=== PATIENT | female | born 1950 | race Two or more races ===

== ENCOUNTER 2020-11-26 17:40 | Inpatient (IN) | payer MEDICARE, BC ==
[~2020-11-26] VITALS: Ht 157.5 cm; Wt 56.7 kg
--- NOTE | 2020-11-26 17:45 | NUR ---
CODE STROKE ACTIVATED.
--- NOTE | 2020-11-26 17:46 | NUR ---
SINGH FROM SHIRT LINE OPERATOR OFFICE. TO ER BED 5. AAOX4. NOT IN RESP DISTRESS. BROUGHT IN FOR UNABLE TO SPEAK SUDDENLY. LKWT 1710. NO MOTOR DEFICIT NOTED. PT IS COMMUNICATING VIA TYPING AT HER CELLPHONE AND WRITING. WAS AT THE BEDSIDE FOR EVAL. ORDERS RECEIVED, NOTED AND CARRIED OUT.
--- NOTE | 2020-11-26 17:46 | NUR ---
IV LINE ESTABLISHED BLOOD DRAWN AND SENT TO LAB.
--- NOTE | 2020-11-26 17:49 | NUR ---
PT IS WHEELED TO CT SCAN VIA CODE STROKE PROTOCOL.
--- NOTE | 2020-11-26 17:50 | NUR ---
TELE NEUROLOGIST WILL BE DR. GUIDO RUIZ.
--- NOTE | 2020-11-26 17:59 | NUR ---
PT IS BACK FROM THE CT SCAN.
[2020-11-26] MEDS ORDERED: DICL100G34 TP (18:07)
[2020-11-26] MEDS ORDERED: DULO60CA45 PO (18:07)
[2020-11-26] MEDS ORDERED: NITR0.4T48 SL (18:07)
[2020-11-26] MEDS ORDERED: PIME30CR TP (18:07)
[2020-11-26] MEDS ORDERED: METO25TA3 PO (18:07)
[2020-11-26] MEDS ORDERED: MULT-447 PO (18:07)
[2020-11-26] MEDS ORDERED: ASCO-352 PO (18:07)
[2020-11-26] MEDS ORDERED: CALC500T13 PO (18:07)
[2020-11-26] MEDS ORDERED: HYDR28.316 TD (18:07)
[2020-11-26] MEDS ORDERED: ASPI-1420 PO (18:07)
[2020-11-26] MEDS ORDERED: OMEG1CAP PO (18:07)
[2020-11-26] MEDS ORDERED: ATOR10TA PO (18:07)
[2020-11-26] MEDS ORDERED: TURM1CAP2 PO (18:07)
[2020-11-26] MEDS ORDERED: MAGN400T26 PO (18:07)
[2020-11-26] MEDS ORDERED: GLUC15006 PO (18:07)
[2020-11-26] MEDS ORDERED: UBID100C13 PO (18:07)
[2020-11-26] MEDS ORDERED: LORA10TA7 PO (18:07)
[2020-11-26 18:08] LABS: CALCIUM, SERUM 8.6 mg/dL (8.5-10.1); CARBON DIOXIDE 28 mmol/L (21-32); CHLORIDE 105 mmol/L (98-107); CREATININE 0.9 mg/dL (0.6-1.3); GLUCOSE 85 mg/dL (74-106); POTASSIUM 4.3 mmol/L (3.5-5.1); SODIUM SERUM 143 mmol/L (136-145); UREA NITROGEN, BLOOD 24 mg/dL (7-18)
[2020-11-26 18:12] LABS: BASOPHILS # (AUTO) 0.1 K/uL (0.0-0.2); BASOPHILS % (AUTO) 1.4 % (0.0-2.0); EOSINOPHILS % (AUTO) 1.5 % (0.0-6.0); HEMATOCRIT 39 % (33-45); LYMPHOCYTES # (AUTO) 1.6 K/uL (0.8-4.8); LYMPHOCYTES % (AUTO) 32.6 % (20.0-44.0); MEAN CORPUSCULAR HGB CONC 33 g/dl (31.0-36.0); MEAN CORPUSCULAR VOLUME 92 fL (82-100); MONOCYTES # (AUTO) 0.5 K/uL (0.1-1.30); MONOCYTES % (AUTO) 9.4 % (2.0-12.0); NEUTROPHILS # (AUTO) 2.8 K/uL (1.8-8.9); NEUTROPHILS % (AUTO) 55.1 % (43.0-81.0); PLATELET COUNT (AUTO) 229 K/uL (150-450); RED BLOOD CELL COUNT(AUTO) 4.25 MIL/uL (4.0-5.2)
[2020-11-26] MEDS ORDERED: IV NS 0.9% 250 ML IV ONE (18:25)
[2020-11-26] MEDS ORDERED: IOHEXOL-350 100 ML VIAL IV ONE (18:25)
--- NOTE | 2020-11-26 18:50 | NUR ---
MOVE SHEET SUBMITTED.
[2020-11-26 18:54] LABS: CHOLESTEROL 147 mg/dL (<200); HDL CHOLESTEROL 59 mg/dL (40-60); LDL 67 mg/dL (0-99); TRIGLYCERIDES 132 mg/dL (30-150)
--- NOTE | 2020-11-26 19:15 | NUR ---
PT IS ABLE TO TALK BUT STILL NOTED WITH SLIGHT STUTTERING. MADE AWARE.
[2020-11-26] MEDS ORDERED: ASPIRIN 325 MG TABLET PO ONE (20:00)
--- NOTE | 2020-11-26 20:00 | NUR ---
ANOTHE SWALLOW SCREEN DONE TO PT D/T PAT IS ABLE TO TALK NOW. PT TOLERATED TRIALS WELL
[2020-11-26] MEDS ORDERED: ASPIRIN 325 MG TABLET ONE (20:54)
--- NOTE | 2020-11-26 21:05 | NUR ---
309-2 PER RN CLAIMS ATTORNEY
--- NOTE | 2020-11-26 21:15 | NUR ---
REPORT GIVEN TO ROGELIO HUI FOR JUN
[2020-11-26 21:20] VITALS: BP 133/75
--- NOTE | 2020-11-26 21:36 | NUR ---
pt transported to unit in [facility] with emt and rn at bedside w/ acls protocol. nad noted during transport
--- NOTE | 2020-11-26 21:40 | NUR ---
ARCHIVIST ECONOMIC HISTORY NOTES PT ARRIVED TO ROOM VIA GURNEY PT WAS ABLE TO WALK TO BED PT WITHOUT ASSISTANCE PT NOTED WITH STEADY GAIT. PT IS A 70 YEAR OLD FEMALE PT CAME TO HOSPITAL AFTER HAVING AN EPISODE OF APHASIA WHILE AT HER ORCHESTRA CONDUCTOR DOCTORS OFFICE. PT WAS GIVEN ASPIRIN AND FLUIDS IN THE ER. MULTIPLE TEST WERE DONE NECK CTA, HEAD CTA, HEAD CT CHEST X RAY ALL TEST NEGATIVE PT ADMITTED TO TELE. PT A/O X4 ABLE TO SPEAK NOTED WITH SOME STUTTERING AT TIMES. PT HAS IV ACCESS ON RAC # 8G AND LFA #18G PATENT AND FLUSHING WELL NO REDNESS OR SWELLING AT SITE CURRENTLY SALINE LOCKED. PT PUT ON TELE MONITOR. PT HELPED CHANGED TO HOSPITAL GOWN PT NOTED WITH CLEAN DRY WARM SKIN NO REDNESS OR DISCOLORATION NOTED. PT ORIENTED TO ROOM AND UNIT. ALL NURSING NEEDS MET AT THIS TIME PT REPORTS NO PAIN OR DISCOMFORT AT THIS TIME. NO RESPIRATORY DISTRESS NOTED. PT ON ROOM AIR TOLERATING WELL. SAFETY MEASURES FOLLOWED AT ALL TIMES BED IN LOW POSITION, HOB ELEVATED BILATERAL SIDE RAILS UP. WILL CONTINUE TO MONITOR. Addendum: 11/27/20 at 0041 by JESSE SHEETS RN PT AMBULATES WITH WALKER.
[2020-11-26 22:00] VITALS: BP 133/75
--- NOTE | 2020-11-26 22:00 | NUR ---
BEE BREEDER NOTES NO ADMITTING ORDERS YET INFORMED ICE CREAM FREEZER ASSISTANT EPIC DOCTOR. STATED OK FOR PT TO EAT NO FURTHER ORDERS. WILL CONTINUE TO MONITOR.
[2020-11-27] VITALS: BP 118/59
--- NOTE | 2020-11-27 00:08 | NUR ---
ENGINEERING LAB TECHNICIAN NOTES INSTALLATION & MAINTENANCE EXECUTIVE JOHANNY RUSH MADE AWARE THAT PT DOES NOT HAVE ADMITTING ORDERS, STATED SHE IS AWARE AWAITING FOR ORDERS.
[2020-11-27] MEDS ORDERED: CALCIUM CARBONATE 500 MG TAB.CHEW PO PRN (02:00)
[2020-11-27] MEDS: ATORVASTATIN 10 MG TABLET PO SCH ×2 (02:41→17:22)
--- NOTE | 2020-11-27 02:42 | NUR ---
MANAGER OF APPLICATIONS DEVELOPMENT OTES ADMITTING ORDERS PUT IN NIHSS SCORE 0 AT THIS TIME WILL CONTINUE TO DO Q4HR CHECKS.
--- NOTE | 2020-11-27 02:48 | NUR ---
SYSTEM DESIGNER NOTES MANAGER STYLE EPIC DOCTOR MADE AWARE PT STILL HAS NO DIET ORDER OR ADMITTING DIAGNOSIS. MANAGER STYLE MD SAID SHE IS AWARE.
[2020-11-27] MEDS ORDERED: ACETAMINOPHEN 325 MG TABLET PO PRN (03:00)
[2020-11-27] MEDS ORDERED: ONDANSETRON HCL/PF 4 MG/2 ML VIAL IVP PRN (03:00)
[2020-11-27] MEDS ORDERED: ZOLPIDEM TARTRATE 5 MG TABLET PO PRN (03:00)
--- NOTE | 2020-11-27 03:12 | NUR ---
PLASTICS BENCH MECHANIC NOTES DIET ORDER AND ADMITTING ORDER PUT IN NOTED. PT REFUSED TO GIVE HOME MED NITROGLYCERIN TO NURSE DESPISE EXPLANATION OF HOSPITAL POLICY AND EXPLANATION THAT WE AT THE HOSPITAL HAVE THE MEDICATION IN CASE SHE NEEDS IT PT STATED " I KNOW YOU NURSES ARE BUSY AND IF I HAVE AN EMERGENCY IT WILL TAKE YOU TIME TO COME HELP ME I CAN TAKE IT MUCH QUICKLY IF I HAVE IT HERE WITH ME" SINCE PT REFUSES TO GIVE ME THE MEDICATION I ADVISED HER TO PLEASE LET IT BE KNOWN IF SHE HAS TAKEN A DOSE OF FEELS ANY CHEST PAIN PT STATES " I PROMISE I WILL TELL YOU AND I WONT TAKE IT UNLESS I REALLY NEED IT" WILL TRY TO SEE IF PT WILL AGREE TO GIVE ME THE MEDICATION AGAIN LATER. WILL CONTINUE TO MONITOR.
[2020-11-27 04:00] VITALS: BP 121/65
[2020-11-27 06:23] LABS: BASOPHILS # (AUTO) 0.1 K/uL (0.0-0.2); BASOPHILS % (AUTO) 1.3 % (0.0-2.0); EOSINOPHILS % (AUTO) 3.7 % (0.0-6.0); HEMATOCRIT 37 % (33-45); HEMOGLOBIN 12.3 g/dL (11.5-14.8); LYMPHOCYTES # (AUTO) 1.5 K/uL (0.8-4.8); LYMPHOCYTES % (AUTO) 34.5 % (20.0-44.0); MEAN CORPUSCULAR HGB CONC 33 g/dl (31.0-36.0); MEAN CORPUSCULAR VOLUME 93 fL (82-100); MONOCYTES # (AUTO) 0.4 K/uL (0.1-1.30); MONOCYTES % (AUTO) 9.8 % (2.0-12.0); NEUTROPHILS # (AUTO) 2.1 K/uL (1.8-8.9); NEUTROPHILS % (AUTO) 50.7 % (43.0-81.0); PLATELET COUNT (AUTO) 217 K/uL (150-450); RED BLOOD CELL COUNT(AUTO) 4.02 MIL/uL (4.0-5.2); WHITE BLOOD COUNT (AUTO) 4.2 K/uL (4.3-11.0)
[2020-11-27 06:39] LABS: ALBUMIN 3.5 g/dL (3.4-5.0); BILIRUBIN,TOTAL 0.4 mg/dL (0.2-1.0); CALCIUM, SERUM 8.3 mg/dL (8.5-10.1); MAGNESIUM 2.1 mg/dL (1.8-2.4); PHOSPHORUS 4.6 mg/dL (2.5-4.9); TOTAL PROTEIN, SERUM 6.4 g/dL (6.4-8.2)
[2020-11-27 06:40] LABS: THYROID STIMULATING HORMONE 1.496 uIU/mL (0.358-3.74)
--- NOTE | 2020-11-27 07:30 | NUR ---
m/s roller staker: initial assessment received pt in bed awake, a/ox4. pt ask a lot of questions, easily gets anxious with repetitive questions. all questions and concerns answered. able to move all ext's wnl for self. no neuro deficit noted. for neuro consult today. will continue to monitor.
[2020-11-27 08:00] VITALS: BP 97/63
--- NOTE | 2020-11-27 08:10 | NUR ---
m/s clerk cashier: neuro consult seen and examined by dr. galvan at this time.
[2020-11-27] MEDS: METOPROLOL SUCCINATE 25 MG TAB.SR.24H PO SCH (08:58)
[2020-11-27] MEDS: LORATADINE 10 MG TABLET PO SCH (09:00)
[2020-11-27] MEDS: DULOXETINE HCL 30 MG CAPSULE.DR PO SCH (09:00)
--- NOTE | 2020-11-27 09:00 | NUR ---
m/s applied psychology professor: notes no change in score on nihhs.
[2020-11-27] MEDS: ASCORBIC ACID 500 MG TABLET PO SCH (09:01)
[2020-11-27] MEDS: MULTIVITAMINS,THERAGRAN 1 UDTAB TABLET PO SCH (09:01)
[2020-11-27] MEDS: MAGNESIUM OXIDE 400 MG TABLET PO SCH (09:01)
[2020-11-27] MEDS: ASPIRIN EC 81 MG TABLET.DR PO SCH (09:01)
--- NOTE | 2020-11-27 09:10 | NUR ---
m/s outreach specialist: notes mri checklist/consent completed and signed by pt.
--- NOTE | 2020-11-27 10:30 | NUR ---
m/s principal developer: notes s.t, o.t. and p.t. russel completed today. pt for mri brain, awaiting for tech to pick her up. pt aware. will continue to monitor.l
--- NOTE | 2020-11-27 11:10 | NUR ---
m/s nancy: notes picked up via wheelchair for mri brain at this time with chart. Addendum: 11/27/20 at 1114 by RASHID COATES LVN alex was removed.
--- NOTE | 2020-11-27 11:38 | NUR ---
pt med surg status, tele given to tech.
--- NOTE | 2020-11-27 11:46 | NUR ---
m/s oil tank car cleaner: notes back from mri. lunch served. instructed to call for assistance.
--- NOTE | 2020-11-27 13:00 | NUR ---
m/s hand woven carpet and rug mender: notes no change in score=0 on nihhs.
[2020-11-27] MEDS: CLOPIDOGREL BISULFATE 75 MG TABLET PO SCH (14:30)
--- NOTE | 2020-11-27 15:00 | NUR ---
m/s mental health specialist: notes informed pt dr. galvan added plavix 75mg with her medication. pt refused to take med at this time despite educated pt on med and side effects. pt still talks fast, easily gets anxious. reality orientation provided prn. will continue to monitor.
[2020-11-27 16:00] VITALS: BP 116/79
--- NOTE | 2020-11-27 16:15 | NUR ---
m/s demand planner: notes offered once more re: plavix medication and still pt doesn't want to take. pt needs frequent reminder and teaching on meds, pt easily gets anxious and very needy. needs attended. will continue to monitor.
--- NOTE | 2020-11-27 16:28 | NUR ---
SS consult: SS Consult requested for Stroke Protocol. The pt. is a 70-year old Moroc[place] female who states that she has been experiencing pain, confusion and moving/speaking slower than usual and left sided weakness the last few days. The pt. is A&O X 4 and appears well groomed. The pt.s mood and speech are WNL. SW explored pt.s living and financial situation. Pt. states she resides at [[address] [place] [id number]] with caregiver, Zoila. Pt. states she is retired and receives SSI . SW explored pt.s support system and she stated her 2 sisters, and cousin are her support system and also care for her when needed. SW explored pt.s drug & ETOH use and pt. denies any use. SW explored pt.s Hx of mental Health. Patient denies any Hx or use of antipsychotic meds. Pt. denies SI/HI and denies hallucinations. SW conducted the PHQ-9 Stroke Depression Survey and pt. scores a 3. No Psych consult required. EJ provided pt. with empowerment after stroke educational material and pt. accepted it. SW will be available as needed.
--- NOTE | 2020-11-27 17:27 | NUR ---
m/s slide fastener repairer: notes pt refused plavix med order x3 despite medication education including side effects. reality orientation provided prn. needs attended. will continue to monitor.
--- NOTE | 2020-11-27 19:00 | NUR ---
m/s precast concrete ironworker: notes report given to brandon (rn) for continuity of care.
--- NOTE | 2020-11-27 19:33 | NUR ---
MS RN NOTES PT A/O X4 . PT HAS IV ACCESS ON RAC # 8G AND LFA #18G PATENT AND FLUSHING WELL NO REDNESS OR SWELLING AT SITE CURRENTLY SALINE LOCKED. ALL NURSING NEEDS MET AT THIS TIME PT REPORTS NO PAIN OR DISCOMFORT AT THIS TIME. NO RESPIRATORY DISTRESS NOTED. PT ON ROOM AIR TOLERATING WELL.SAFETY MEASURES FOLLOWED AT ALL TIMES BED IN LOW POSITION, HOB ELEVATED BILATERAL SIDE RAILS UP. WILL CONTINUE TO MONITOR.
[2020-11-27 20:00] VITALS: BP 125/78
--- NOTE | 2020-11-28 00:18 | NUR ---
MS RN NOTES PT TRANSFER OF CARE GIVEN TO CR HUI
[2020-11-28 06:15] LABS: BASOPHILS # (AUTO) 0.1 K/uL (0.0-0.2); BASOPHILS % (AUTO) 1.4 % (0.0-2.0); EOSINOPHILS % (AUTO) 3.2 % (0.0-6.0); HEMATOCRIT 38 % (33-45); HEMOGLOBIN 12.5 g/dL (11.5-14.8); LYMPHOCYTES # (AUTO) 1.4 K/uL (0.8-4.8); LYMPHOCYTES % (AUTO) 32.7 % (20.0-44.0); MEAN CORPUSCULAR HGB CONC 33 g/dl (31.0-36.0); MEAN CORPUSCULAR VOLUME 93 fL (82-100); MONOCYTES # (AUTO) 0.4 K/uL (0.1-1.30); MONOCYTES % (AUTO) 10.1 % (2.0-12.0); NEUTROPHILS # (AUTO) 2.3 K/uL (1.8-8.9); NEUTROPHILS % (AUTO) 52.6 % (43.0-81.0); PLATELET COUNT (AUTO) 212 K/uL (150-450); RED BLOOD CELL COUNT(AUTO) 4.08 MIL/uL (4.0-5.2); WHITE BLOOD COUNT (AUTO) 4.3 K/uL (4.3-11.0)
[2020-11-28 06:55] LABS: CALCIUM, SERUM 8.4 mg/dL (8.5-10.1); CREATININE 0.9 mg/dL (0.6-1.3); MAGNESIUM 2.3 mg/dL (1.8-2.4); PHOSPHORUS 4.5 mg/dL (2.5-4.9); POTASSIUM 4.4 mmol/L (3.5-5.1)
--- NOTE | 2020-11-28 07:17 | NUR ---
MS RN CLOSING NOTE PT IS IN BED WITH EYES CLOSED, AROUSABLE TO STIMULATION. A/O X4. PT IS STABLE ON ROOM AIR. NO SOB OR S/S OF RESPIRATORY DISTRESS NOTED. PT HAS NO C/O PAIN OR DISCOMFORT AT THIS TIME. IV ACCESS IS INTACT, PATENT, AND FLUSHING WELL. ALL NEEDS HAVE BEEN MET. SAFETY PRECAUTIONS MAINTAINED AT ALL TIMES. BED IN LOWEST LOCKED POSITION, HOB ELEVATED, SIDE RAILS UP X2. CALL LIGHT AND TABLE WITHIN REACH. WILL ENDORSE TO ONCOMING NURSE FOR JUN.
--- NOTE | 2020-11-28 07:20 | NUR ---
MS RN NOTES PATIENT IS IN BED RESTING, EYES CLOSED, ABLE TO BE AWAKENED. A/O X4, ABLE TO MAKE NEEDS KNOWN. BREATHING EVEN AND UNLABORED, STABLE ON ROOM AIR. IV ACCESS IS INTACT AND PATENT. BREAKFAST AT BEDSIDE, BUT PATIENT WOULD LIKE TO TAKE A NAP AT THIS TIME. SAFETY PRECAUTIONS IN PLACE. WILL CONTINUE TO MONITOR.
[2020-11-28 08:00] VITALS: BP 109/73
[2020-11-28] MEDS: METOPROLOL SUCCINATE 25 MG TAB.SR.24H PO SCH (08:58)
[2020-11-28] MEDS: MULTIVITAMINS,THERAGRAN 1 UDTAB TABLET PO SCH (08:59)
[2020-11-28] MEDS: LORATADINE 10 MG TABLET PO SCH ×2 (08:59→09:00)
[2020-11-28] MEDS: ASCORBIC ACID 500 MG TABLET PO SCH (08:59)
[2020-11-28] MEDS: CLOPIDOGREL BISULFATE 75 MG TABLET PO SCH ×2 (08:59→09:00)
[2020-11-28] MEDS: DULOXETINE HCL 30 MG CAPSULE.DR PO SCH ×2 (08:59→09:00)
[2020-11-28] MEDS: ASPIRIN EC 81 MG TABLET.DR PO SCH (08:59)
[2020-11-28] MEDS: MAGNESIUM OXIDE 400 MG TABLET PO SCH (08:59)
--- NOTE | 2020-11-28 11:30 | NUR ---
RN NOTES PATIENT WAS SEEN BY DR. BERG TODAY W/ ORDER FOR VASCULAR CONSULT W/ DR. JAMA. PATIENT AWARE.
--- NOTE | 2020-11-28 13:50 | NUR ---
RN NOTES SPOKE W/ MARJ (SON), AND MADE AWARE OF PLAN OF CARE.
[2020-11-28 16:00] VITALS: BP 116/75
[2020-11-28] MEDS: ATORVASTATIN 10 MG TABLET PO SCH (17:16)
--- NOTE | 2020-11-28 18:48 | NUR ---
RN NOTES PATIENT UP IN BED EATING DINNER. NO ACUTE DISTRESS. PLAN OF CARE EXPLAINED TO PATIENT BUT PATIENT FEELS ANXIOUS FOR DISCHARGE TOMORROW. PATIENT VERBALIZED UNDERSTANDING BUT REINFORCEMENT AND ADDITIONAL EXPLANATION MAY BE NEEDED. SAFETY MEASURES MAINTAINED. WILL ENDORSE TO MEDIA MARKETING MANAGER RN FOR JUN.
--- NOTE | 2020-11-28 19:15 | NUR ---
MS RN NOTES RECEIVED ON BED A/O X4,ABLE TO VERBALIZED NEEDS,BREATHING REGULAR,NOT IN ANY FORM FO DISTRESS.SALINE LOCK ON BOTH ARMS INTACT AND PATENT.NO FACIAL DROOP NOTED,STRONG BAR TACKER SEWING MACHINE ON BOTH HAND NOTED,ABLE TO WALK WITH STEADY GAIT.DENIES DISCOMFORTS AT THE MOMENT.CALL LIGHT IN REACH,NEEDS ANTICIPATED.
[2020-11-28 20:00] VITALS: BP_SYST 110; BP_SYST 130; BP_DIAS 78
--- NOTE | 2020-11-29 | NUR ---
MS RN NOTES NOT IN ANY FORM OF DISTRESS,REPORT GIVEN TO JEFFRY FOR CONTINUITY OF CARE.
--- NOTE | 2020-11-29 00:30 | NUR ---
MS RN NOTES REPORT RECEIVED ASSESSMENT COMPLETE. RECEIVED PT IN BED A/O X4,ABLE TO VERBALIZED NEEDS. NO ACUTE DISTRESS NOTED. BREATHING REGULAR,NOT IN ANY FORM FO DISTRESS.EQUAL RISE AND FALL OF CHEST ON INSPIRATION AND EXPIRATION. SALINE LOCK TO BOTH ARMS INTACT AND PATENT.NO UNILATERAL FACIAL DROOP NOTED, EQUAL STREGTH BILATERAL BUSINESS RESILIENCY MANAGER ON BOTH HANDS NOTED. DENIES PAIN AT PRESENT TIME. ABLE TO WALK WITH STEADY GAIT BED IN LOW AND LOCKED POSITION. .CALL LIGHT IN REACH. WILL CONT TO MONITOR
[2020-11-29] MEDS ORDERED: CLOP75TA15 PO (07:37)
[2020-11-29 08:00] VITALS: BP 100/73
[2020-11-29 08:40] VITALS: BP 100/73
[2020-11-29] MEDS: DULOXETINE HCL 30 MG CAPSULE.DR PO SCH (09:00)
[2020-11-29] MEDS: LORATADINE 10 MG TABLET PO SCH (09:00)
--- NOTE | 2020-11-29 09:15 | NUR ---
RN NOTES PATIENT SEEN BY DR. BERG TODAY; FOR POSSIBLE DISCHARGE TO HOME TODAY.
[2020-11-29] MEDS: ASPIRIN EC 81 MG TABLET.DR PO SCH (09:18)
[2020-11-29] MEDS: ASCORBIC ACID 500 MG TABLET PO SCH (09:19)
[2020-11-29] MEDS: MULTIVITAMINS,THERAGRAN 1 UDTAB TABLET PO SCH (09:19)
[2020-11-29] MEDS: METOPROLOL SUCCINATE 25 MG TAB.SR.24H PO SCH (09:20)
[2020-11-29] MEDS: CLOPIDOGREL BISULFATE 75 MG TABLET PO SCH (10:51)
[2020-11-29] MEDS: MAGNESIUM OXIDE 400 MG TABLET PO SCH (10:51)
[2020-11-29 15:12] VITALS: BP 132/72
--- NOTE | 2020-11-29 16:08 | NUR ---
SS note: EJ notified by nurse, Antonio that pt. wants to speak to SS. EJ called pt. and pt. stated she would like additional educational material bout TIA and how to eat appropriately. EJ informed pt. to refer back to Empowerment after stroke educational packet provided on 11/27/20 and that she can go on [employer] website to find additional resources/ material and go to [employer] to learn more about appropriate diet to manage TIA. EJ expressed understanding and stated she will go on the above stated websites for additional information. Pt. thanked EJ.
--- NOTE | 2020-11-29 16:34 | NUR ---
SUPERVISOR MACHINING NOTES PATIENT WAS SEEN BY DR. BERG TODAY WITH ORDER FOR DISCHARGE TO HOME. DISCHARGE INSTRUCTION AND EDUCATION PROVIDED TO PATIENT AND EXPLAINED MEDICATIONS AND PRESCRIPTIONS. PATIENT VERBALIZED UNDERSTANDING. DISCHARGE FORM AND BELONGINGS LIST FORM SIGNED BY PATIENT. ALL BELONGINGS ACCOUNTED FOR. NAME WRIST BAND AND IV LINE REMOVED. NO SKIN ISSUES NOTED. PATIENT WAS ACCOMPANIED TO THE LOBBY VIA WHEELCHAIR. PATIENT WAS PICKED UP BY [facility]AN PATIENT EXECUTIVE CANDIDATE DEVELOPER VIA PRIVATE CAR. CHARGE NURSE AND MD ARE AWARE OF DISCHARGE.
== END 2020-11-29 16:25 | disposition home or self-care (01) | DRG 69 ==
LOC: ER 17:43 → TELE 21:09 → MED 11-27 12:39
PROVIDERS: ADMIT Nurse Practitioner Acute Care; ATTEND Hospitalist
DX: G45.9 Transient cerebral ischemic attack, unspecified (principal); N17.0 Acute kidney failure with tubular necrosis; G81.94 Hemiplegia, unspecified affecting left nondominant side; I10 Essential (primary) hypertension; I25.10 Atherosclerotic heart disease of native coronary artery without angina pectoris; Z95.5 Presence of coronary angioplasty implant and graft; Z20.822 Contact with and (suspected) exposure to COVID-19; F41.1 Generalized anxiety disorder; E78.5 Hyperlipidemia, unspecified; Z79.899 Other long term (current) drug therapy; M47.817 Spondylosis without myelopathy or radiculopathy, lumbosacral region; Z88.1 Allergy status to other antibiotic agents; Z88.5 Allergy status to narcotic agent; Z88.8 Allergy status to other drugs, medicaments and biological substances; Z79.82 Long term (current) use of aspirin
CPT/HCPCS: 36415; 70450-TC; 70496-TC; 70498-TC; 70551-TC; 71045-TC; 80048-TC; 80053-TC; 80061-TC; 83735-TC; 83880; 84100-TC; 84443-TC; 84484-TC; 85025-TC; 85652-TC; 85730-TC; 87081-TC; 92526; 92611-TC; 97116-TC; 97530-TC; C9803; G0378; J7050; Q9967

== ENCOUNTER 2021-06-28 09:27 | Inpatient (IN) | payer MEDICARE, BC ==
[~2021-06-28] VITALS: Ht 157.5 cm; Wt 59.9 kg
[~2021-06-28 09:27] MED LIST: ASCO-352 PO; ASPI-1420 PO; ATOR10TA PO; CALC500T13 PO; CLOP75TA15 PO; DICL100G34 TP; DULO60CA45 PO; GLUC15006 PO; HYDR28.316 TD; LORA10TA7 PO; MAGN400T26 PO; METO25TA3 PO; MULT-447 PO; NITR0.4T48 SL; OMEG1CAP PO; PIME30CR TP; TURM1CAP2 PO; UBID100C13 PO
--- NOTE | 2021-06-28 09:27 | NUR ---
PT BIB CAREGIVER, NOTICED DIFFICULTY SPEAKING WHILE ON WAY TO ED LKW 0900 AND PT C/O L SIDED NUMBNESS X 3 DAYS. PT IS AAOX4, NOT IN RESPIRATORY DISTRESS, HOOKED TO HR ASSOCIATE, KEPT RESTED AND COMFORTABLE. WILL CONTINUE TO MONITOR.
--- NOTE | 2021-06-28 09:44 | NUR ---
SEEN AND EXAMINED BY DR LENTZ
--- NOTE | 2021-06-28 09:45 | NUR ---
IV LINE ESTABLISHED G18 L AC.
[2021-06-28] MEDS ORDERED: IV NS 0.9% 1,000 ML IV ONE (10:00)
--- NOTE | 2021-06-28 10:07 | NUR ---
HOST HOSTESS AT BEDSIDE FOR EVAL
--- NOTE | 2021-06-28 10:11 | NUR ---
COVID SWAB DONE AND SENT TO LAB
[2021-06-28 10:21] LABS: BASOPHILS % (AUTO) 0.6 % (0.0-2.0); EOSINOPHILS % (AUTO) 2.1 % (0.0-6.0); HEMATOCRIT 36 % (33-45); HEMOGLOBIN 12.1 g/dL (11.5-14.8); LYMPHOCYTES # (AUTO) 0.9 K/uL (0.8-4.8); LYMPHOCYTES % (AUTO) 20.6 % (20.0-44.0); MEAN CORPUSCULAR HGB CONC 33 g/dl (31.0-36.0); MEAN CORPUSCULAR VOLUME 90 fL (82-100); MONOCYTES # (AUTO) 0.3 K/uL (0.1-1.30); MONOCYTES % (AUTO) 8.2 % (2.0-12.0); NEUTROPHILS # (AUTO) 2.9 K/uL (1.8-8.9); NEUTROPHILS % (AUTO) 68.5 % (43.0-81.0); PLATELET COUNT (AUTO) 211 K/uL (150-450); RED BLOOD CELL COUNT(AUTO) 4.03 MIL/uL (4.0-5.2); WHITE BLOOD COUNT (AUTO) 4.2 K/uL (4.3-11.0)
[2021-06-28 10:40] LABS: CALCIUM, SERUM 8.6 mg/dL (8.5-10.1); CARBON DIOXIDE 27 mmol/L (21-32); CHLORIDE 106 mmol/L (98-107); CREATININE 0.9 mg/dL (0.6-1.3); GLUCOSE 101 mg/dL (74-106); POTASSIUM 3.8 mmol/L (3.5-5.1); SODIUM SERUM 138 mmol/L (136-145); UREA NITROGEN, BLOOD 21 mg/dL (7-18)
--- NOTE | 2021-06-28 10:46 | NUR ---
MOVE SHEET SUBMITTED AND CALLED FOR TELE BED.
[2021-06-28] MEDS ORDERED: IOHEXOL-350 100 ML VIAL IV ONE (11:03)
--- NOTE | 2021-06-28 11:55 | NUR ---
ROOM 311-1
--- NOTE | 2021-06-28 12:03 | NUR ---
[facility] CALLED MUSSEL OPENER PAGED.
--- NOTE | 2021-06-28 12:07 | NUR ---
CALLED [facility] [phone] NO RECORDS PER GERI
--- NOTE | 2021-06-28 12:36 | NUR ---
REPORT GIVEN TO EZ ROMERO FOR JUN.
[2021-06-28] MEDS ORDERED: NITROGLYCERIN 0.4 MG/TAB BOTTLE SL PRN (13:00)
[2021-06-28] MEDS ORDERED: ASPIRIN EC 81 MG TABLET.DR PO SCH (13:00)
[2021-06-28] MEDS ORDERED: ONDANSETRON HCL/PF 4 MG/2 ML VIAL IVP PRN (13:30)
[2021-06-28] MEDS ORDERED: ACETAMINOPHEN 325 MG TABLET PO PRN (13:30)
[2021-06-28] MEDS ORDERED: ASPIRIN EC 325 MG TABLET.DR PO ONE (13:30)
[2021-06-28 14:22] LABS: D-DIMER 0.35 mg/L(FEU (0.17-0.50)
[2021-06-28 14:30] LABS: THYROID STIMULATING HORMONE 0.961 uIU/mL (0.358-3.74)
--- NOTE | 2021-06-28 15:06 | NUR ---
SS Consult: SS consult for stroke. Pt. Is a 70-year-old female who demonstrates adequate insight to the reason for hospitalization. Per pt., she was brought to hospital by her caregiver due to a stroke. Pt. was oriented x4, alert, and cooperative. During interview, pt. was capable of following directions, made appropriate eye-contact, and appeared well-groomed. Pt.s speech was at a normal rate. Pt.s mood was elevated. EJ explored pt.s hx of mental health and substance abuse. Pt. reported no hx of mental health, substance abuse, suicidal or homicidal ideation. Pt. denies auditory hallucinations, visual hallucinations, paranoia, or delusions. SW explored pt.s living situation. Per pt., she lives by herself [[address] [place] [address]]. Per pt., she reports having adequate support from family and her caregiver [Apr]. Pt. stated that her caregiver comes 3-4 times a week and is supportive. EJ screened pt. with the PHQ9 and she scored a 1. There is no need for a psych. Consult. Plan: EJ provided available resources and pt. accepted. Once discharge, per pt., she [address] [place] [address]. Resources Provided: Stroke Empowerment Packet and Senior Resources.
--- NOTE | 2021-06-28 15:10 | NUR ---
ms rn received a new admission from er, 70 year old female, came in w/ dx of Tia,awake,alert,oriented x4,not in any form of distress nsr on monitor, denies pain at this time, will monitor patient.
[2021-06-28 16:55] VITALS: BP 119/73
--- NOTE | 2021-06-28 17:00 | NUR ---
ms rn was seen by dr. mariam tyson/ orders made and carried out.
--- NOTE | 2021-06-28 18:20 | NUR ---
ms rn on bed, due meds given, all needs attended.
[2021-06-28] MEDS: ATORVASTATIN 10 MG TABLET PO SCH (18:29)
[2021-06-28] MEDS: ENOXAPARIN SODIUM 40 MG/0.4 ML DISP.SYRIN SQ SCH (18:36)
--- NOTE | 2021-06-28 19:30 | NUR ---
HOT WALKER OPENING NOTE RECEIVED PT AWAKE IN BED. A/O X4. PT STABLE ON ROOM AIR. NO SOB OR S/S OF RESPIRATORY DISTRESS. ON EXTERNAL LABORER VEGETABLE FARM READING SR. IV ACCESS LAC 18 GAUGE, INTACT AND PATENT, SALINE LOCKED. SAFETY PRECAUTIONS IN PLACE. BED IN LOWEST LOCKED POSITION, HOB ELEVATED, SIDE RAILS UP X2, AND CALL LIGHT AND TABLE WITHIN REACH. WILL CONTINUE WITH PLAN OF CARE.
[2021-06-28 20:00] VITALS: BP 103/63
[2021-06-28] MEDS ORDERED: SIMVASTATIN 40 MG TABLET PO SCH (22:00)
[2021-06-29] VITALS: BP 109/63
[2021-06-29 04:00] VITALS: BP 115/64
--- NOTE | 2021-06-29 05:54 | NUR ---
BAR MACHINE OPERATOR PRODUCTION (APRIL) NOTIFIED YESTERDAY, HE WILL BE IN TODAY AM 06/29/21.
--- NOTE | 2021-06-29 06:39 | NUR ---
TUBER MACHINE CUTTER CLOSING NOTE PT AWAKE IN BED. A/O X4. PT STABLE ON ROOM AIR. NO SOB OR S/S OF RESPIRATORY DISTRESS. ON EXTERNAL LAST DIPPER READING SR 67 BPM. IV ACCESS LAC 18 GAUGE, INTACT AND PATENT, SALINE LOCKED. ALL NEEDS MET AT THIS TIME. SAFETY PRECAUTIONS IN PLACE AT ALL TIMES. BED IN LOWEST LOCKED POSITION, HOB ELEVATED, SIDE RAILS UP X2, AND CALL LIGHT AND TABLE WITHIN REACH. WILL ENDORSE TO ONCOMING NURSE FOR JUN.
[2021-06-29] MEDS: PANTOPRAZOLE 40 MG TABLET.DR PO SCH ×2 (07:30→09:06)
--- NOTE | 2021-06-29 07:45 | NUR ---
FIRE ALARM TECHNICIAN OPENING NOTE RECEIVED PATIENT IN BED, AWAKE, ALERT AND ORIENTED X 4. ON ROOM AIR, WELL TOLERATED. NO SHORTNESS OF BREATH NOTED. NOT IN ANY FORM OF RESPIRATORY DISTRESS. ON EXTERNAL SCRAP METAL COLLECTOR READING SR. WITH IV ACCESS ON LEFT AC G18, PATENT AND INTACT WITH SALINE LOCKED. SAFETY MEASURES IN PLACE. BED PLACED IN LOWEST LOCKED POSITION, HEAD OF BED ELEVATED, SIDE RAILS UP X2, CALL LIGHT WITHIN REACH. WILL CONTINUE TO MONITOR
[2021-06-29] MEDS: CLOPIDOGREL BISULFATE 75 MG TABLET PO SCH (09:00)
[2021-06-29] MEDS: DULOXETINE HCL 30 MG CAPSULE.DR PO SCH (09:00)
[2021-06-29] MEDS: ASPIRIN EC 81 MG TABLET.DR PO SCH (09:00)
--- NOTE | 2021-06-29 09:00 | NUR ---
PRESIDENT TRUST COMPANY NOTE DUE MEDS GIVEN ORALLY ORDERED, TOLERATED WELL
[2021-06-29] MEDS: METOPROLOL SUCCINATE 25 MG TAB.SR.24H PO SCH (09:03)
[2021-06-29 10:39] LABS: BASOPHILS % (AUTO) 1.2 % (0.0-2.0); EOSINOPHILS % (AUTO) 2.2 % (0.0-6.0); HEMATOCRIT 40 % (33-45); HEMOGLOBIN 13.2 g/dL (11.5-14.8); LYMPHOCYTES # (AUTO) 0.9 K/uL (0.8-4.8); LYMPHOCYTES % (AUTO) 23.6 % (20.0-44.0); MEAN CORPUSCULAR HGB CONC 33 g/dl (31.0-36.0); MEAN CORPUSCULAR VOLUME 90 fL (82-100); MONOCYTES # (AUTO) 0.4 K/uL (0.1-1.30); MONOCYTES % (AUTO) 9.5 % (2.0-12.0); NEUTROPHILS # (AUTO) 2.4 K/uL (1.8-8.9); NEUTROPHILS % (AUTO) 63.5 % (43.0-81.0); PLATELET COUNT (AUTO) 217 K/uL (150-450); RED BLOOD CELL COUNT(AUTO) 4.46 MIL/uL (4.0-5.2); WHITE BLOOD COUNT (AUTO) 3.7 K/uL (4.3-11.0)
[2021-06-29 11:03] LABS: CREATININE 0.9 mg/dL (0.6-1.3)
[2021-06-29] MEDS: ENOXAPARIN SODIUM 40 MG/0.4 ML DISP.SYRIN SQ SCH (14:00)
--- NOTE | 2021-06-29 17:00 | NUR ---
COLLEGE ADVISOR NOTE MRI OF THE CERVICAL SPINE DONE WITH RESULT, DR LAWLER AWARE
[2021-06-29] MEDS: ATORVASTATIN 10 MG TABLET PO SCH (18:20)
--- NOTE | 2021-06-29 18:50 | NUR ---
TELE CLOSING NOTES PATIENT IS RESTING IN BED, STABLE AND NOT IN ANY FORM OF DISTRESS. DUE MEDS GIVEN ORALLY, TOLERATED WELL. WILL ENDORSED TO NURSE TORRES
--- NOTE | 2021-06-29 19:10 | NUR ---
RN NOTES: -RECEIVED AWAKE ON BED,SITTING COMFORTABLY, NO SIGN OF ANY DISTRESS OR DISCOMFORT, A/OX4, ON TELE MONITOR SR- RATE-60'S, PATIENT IS AMBULATORY WITH BATHROOM PRIVILEGE, SHE HAS LAC G#18, ORIENTED TO UNIT AND STAFF, UPON ENDORSEMENT SHE IS ASKING HER IV CANNULA SITE DRESSING NEEDS TO BE CHANGE, RN WILL CHANGE AND FLUSHED, AFTER ENDORSEMENT TIME. -PER ENDORSEMENT, MEDICAL RECORDS NEEDS TO BE F/U IN [facility] IN THE MORNING, NEEDS TO OBTAIN CONSENT TO RELEASE MEDICAL RECORD, WILLF/U TOMORROW MORNING.
[2021-06-29 20:00] VITALS: BP 134/80
--- NOTE | 2021-06-29 22:33 | NUR ---
RN NOTES: PATIENT APPROACHED RN SHE WANT SOME CALCIUM AND VITAMIN SUPPLEMENT, SHE ASKED FOR MULTIVITAMIN. -AQUATIC LABORER-OLGA NOTIFIED AND RELAY PATIENT REQUEST, AGREE FOR MULTIVITAMIN Q DAILY.
--- NOTE | 2021-06-29 23:34 | NUR ---
RN NOTES: ASLEEP IN BETWEEN, FALL,SAFETY, ASPIRATION AND SEIZURE PRECAUTION OBSERVED.
[2021-06-29 23:52] VITALS: BP 126/75
[2021-06-30] VITALS: BP 126/75
[2021-06-30 04:00] VITALS: BP 123/75
[2021-06-30 05:00] VITALS: BP 123/75
--- NOTE | 2021-06-30 06:45 | NUR ---
RN NOTES: ASLEEP IN THE NIGHT NO PAIN OR DISCOMFORT, NO LABS FOR TODAY, ABLE TO AMBULATE USING HER CANE GOING TO THE BATHROOM, ON SINUS RHYTHM-[id number], V/S STABLE, TO F/U PAPER WORKS IN [facility], ENDORSED FOR CONTINUITY OF CARE.
--- NOTE | 2021-06-30 07:30 | NUR ---
OPTOMETRIST OWNER OPENING NOTE RECEIVED PATIENT IN BED, AWAKE, ALERT AND ORIENTED X 4. ON ROOM AIR, TOLERATING WELL. NO SHORTNESS OF BREATH NOTED. NOT IN ANY FORM OF RESPIRATORY DISTRESS. ON TELE MONITOR READING SR HR AT 61. WITH IV ACCESS ON LEFT AC G18, PATENT AND INTACT WITH SALINE LOCKED. SAFETY MEASURES IN PLACE. BED PLACED IN LOWEST LOCKED POSITION, HEAD OF BED ELEVATED, SIDE RAILS UP X2, CALL LIGHT WITHIN REACH. WILL CONTINUE TO MONITOR PATIENT ACCORDINGLY.
[2021-06-30] MEDS: PANTOPRAZOLE 40 MG TABLET.DR PO SCH (07:46)
[2021-06-30] MEDS: DULOXETINE HCL 30 MG CAPSULE.DR PO SCH (08:15)
[2021-06-30] MEDS: CLOPIDOGREL BISULFATE 75 MG TABLET PO SCH (08:15)
[2021-06-30] MEDS: ASPIRIN EC 81 MG TABLET.DR PO SCH (08:16)
[2021-06-30] MEDS: METOPROLOL SUCCINATE 25 MG TAB.SR.24H PO SCH (08:16)
[2021-06-30 08:23] VITALS: BP 113/71
[2021-06-30 08:46] VITALS: BP 113/71
[2021-06-30] MEDS ORDERED: MULTIVITAMINS,THERAGRAN 1 UDTAB TABLET PO SCH (09:00)
[2021-06-30] MEDS: ENOXAPARIN SODIUM 40 MG/0.4 ML DISP.SYRIN SQ SCH (14:00)
--- NOTE | 2021-06-30 15:44 | NUR ---
CUSTOMER SERVICE SALES ASSOCIATE NOTES DISCHARGED PATIENT IN STABLE CONDITION. VITAL SIGNS WITHIN NORMAL LIMITS. DISCHARGE INSTRUCTIONS AND FOLLOW UP DISCUSSED WITH THE PATIENT, PATIENT VERBALIZED UNDERSTANDING. IV ACCESS AND ARMBAND REMOVED. BELONGINGS ACCOUNTED AND SIGNED FOR. LEFT UNIT IN STABLE CONDITION. WHEELED TO LOBBY SAFELY. PICKED UP BY SISTER PEARL. CARTER AND CHARGE NURSE AWARE OF DISCHARGE.
== END 2021-06-30 15:30 | disposition home or self-care (01) | DRG 552 ==
LOC: ER 09:33 → TELE 12:06
DX: M47.892 Other spondylosis, cervical region (principal); G45.9 Transient cerebral ischemic attack, unspecified; E78.5 Hyperlipidemia, unspecified; F41.9 Anxiety disorder, unspecified; I10 Essential (primary) hypertension; I25.10 Atherosclerotic heart disease of native coronary artery without angina pectoris; Z20.822 Contact with and (suspected) exposure to COVID-19; Z86.73 Personal history of transient ischemic attack (TIA), and cerebral infarction without residual deficits; Z79.02 Long term (current) use of antithrombotics/antiplatelets; Z95.5 Presence of coronary angioplasty implant and graft; F44.9 Dissociative and conversion disorder, unspecified; R29.707 NIHSS score 7
CPT/HCPCS: 36415; 70450-TC; 70496-TC; 70498-TC; 71045-TC; 72141-TC; 80048-TC; 80061-TC; 82962-TC; 84443-TC; 84484-TC; 85025-TC; 85378-TC; 85652-TC; 85730-TC; 87081-TC; 93307-TC; 97116-TC; 97530-TC; 97535-TC; C9803; G0378; J1650; J7030; Q9967